=== PATIENT | female | born 1940 | race Caucasian/White ===

== ENCOUNTER 2017-07-12 12:35 | Emergency (ER) | payer OTHER ==
[~2017-07-12] VITALS: Ht 160 cm; Wt 55.7 kg
[2017-07-12 14:30] LABS: HEMATOCRIT 36.5 % (36.0-46.0); HEMOGLOBIN 12.3 G/DL (11.9-15.5); MCH 31.1 PG (29.0-34.0); MCHC 33.7 G/DL (30.0-36.0); MCV 92.4 FL (83-99); PLATELET COUNT 159 K/uL (156-360); RBC DIS.WIDTH-CV 12.1 % (11.8-14.6); RBC DIS.WIDTH-SD 41.7 % (39-53); RED BLOOD COUNT 3.95 M/uL (3.80-5.20); WHITE BLOOD COUNT 6.2 K/uL (4.1-10.2)
[2017-07-12 14:38] LABS: INTER. NORMALIZED RATIO 1.9
[2017-07-12 14:41] LABS: CHLORIDE 106 mEq/L (99-109); PTT 50.5 SEC (25-37); SODIUM 141 mEq/L (136-147)
[2017-07-12 14:42] LABS: GLUCOSE 76 mg/dL (70-99)
[2017-07-12 14:46] LABS: CREATININE 1.5 mg/dL (0.6-1.3); GFR ESTIMATE (CALCULATED) 36 mL/min/
[2017-07-12 14:47] LABS: UREA NITROGEN (BUN) 31 mg/dL (9-23)
[2017-07-12 16:47] VITALS: BP 119/67
== END 2017-07-12 16:49 | disposition home or self-care (01) ==
LOC: EME 12:35
PROVIDERS: Emergency Medicine
DX: S02.2XXA Fracture of nasal bones, initial encounter for closed fracture (principal); S00.83XA Contusion of other part of head, initial encounter; W01.0XXA Fall on same level from slipping, tripping and stumbling without subsequent striking against object, initial encounter; Y93.01 Activity, walking, marching and hiking; Z79.01 Long term (current) use of anticoagulants; I50.9 Heart failure, unspecified; F32.9 Major depressive disorder, single episode, unspecified; Z88.0 Allergy status to penicillin
CPT/HCPCS: 70450; 70486; 80048; 85027; 85610; 85730; 99281; 99284